=== PATIENT | male | born 1990 | race Caucasian/White ===

== ENCOUNTER 2023-11-25 02:33 | Emergency (ER) | payer MEDICAID ==
[~2023-11-25] VITALS: Ht 162.6 cm; Wt 68.2 kg
[2023-11-25 03:09] VITALS: BP 132/99; PULSE 72; RESP 18; TEMP 98; O2SAT 100
== END 2023-11-25 03:10 ==
LOC: ER 02:34
DX: F10.129 Alcohol abuse with intoxication, unspecified (principal); V59.88XA Occupant (driver) (passenger) of pick-up truck or van injured in other specified transport accidents, initial encounter; Y93.89 Activity, other specified; Y92.89 Other specified places as the place of occurrence of the external cause; Y99.8 Other external cause status; Y90.9 Presence of alcohol in blood, level not specified
CPT/HCPCS: 99283